=== PATIENT | female | born 1985 ===

== ENCOUNTER 2018-08-30 07:49 | Emergency (ER) | payer SELFPAY ==
[2018-08-30 07:51] VITALS: BMI 24.9
--- NOTE | 2018-08-30 08:23 | ED PDOC ---
HPI: Eye Injury/Pain Time Seen by Provider: 08/30/18 07:53 Additional History Per: Patient Additional Complaint(s): licha [id number] 33 y/o F , IUP @ 34 wks comes to the ER c/o 3 days hx of worsening Right eye swelling and pain. Patient reports no trauma, have had previous episodes of this kind of symptoms as a kid. + headache, + watery discharge, NO BLURRED VISION. Denies any fever. PMH: Denies PSH: Denies Allg: NKDA Meds: Denies SH: Denies alcohol, smoking or drug use FH: Denies Past Medical History Vital Signs: Last Vital Signs Temp 98.4 F 08/30/18 07:51 Pulse 79 08/30/18 07:51 Resp 16 08/30/18 07:51 BP 99/66 L 08/30/18 07:51 Pulse Ox 98 08/30/18 07:51 - Family History Family History: States: No Known Family Hx - Home Medications Home Medications: Ambulatory Orders Medication Instructions Recorded DiphenhydrAMINE [Benadryl] 25 mg PO Q8H PRN 3 Days #10 cap 08/30/18 Tobramycin [Tobrex] 5 ml OP Q6H 5 Days #1 drops 08/30/18 - Allergies Allergies/Adverse Reactions: Allergies Allergy/AdvReac Type Severity Reaction Status Date / Time No Known Allergies Allergy Verified 08/30/18 08:14 Physical Exam - Physical Exam Appears: Positive for: No Acute Distress Head Exam: Positive for: NORMAL INSPECTION Skin: Positive for: Normal Color Eye Exam: Positive for: EOMI, PERRL, Periorbital swelling, Conjunctival injection. Negative for: Nystagmus, Periorbital tenderness ENT: Positive for: Normal ENT Inspection Neck: Positive for: Normal Cardiovascular/Chest: Positive for: Regular Rate, Rhythm Respiratory: Positive for: Normal Breath Sounds. Negative for: Decreased Breath Sounds, Accessory Muscle Use Gastrointestinal/Abdominal: Positive for: Normal Exam Back: Negative for: L CVA Tenderness, R CVA Tenderness Extremity: Positive for: Normal ROM. Negative for: Tenderness, Pedal Edema Neurological/Psych: Positive for: Awake, Alert, Normal Tone, Oriented, compliance and control analyst II- XII - ECG O2 Sat by Pulse Oximetry: 98 - Progress ED Course And Treament: A/P: 33 y/o F with R conductivities - STAT benedryl - STAT prednosolone - STAT Tylenol - Tobramycin eye drops, 1 drop Q6H Case discussed with Dr. Benson Patient understands and agrees with plan Disposition - Clinical Impression Clinical Impression: Conjunctivitis - Disposition Referrals: [facility] [Provider Group] Disposition Time: 08:58 Condition: FAIR Additional Instructions: Use Benadryl Q6H PRN C/w Eye drops as instructed/Caution in Wash it with clean water Q6H Follow up with PMD in 2-3 days Prescriptions: DiphenhydrAMINE [Benadryl] 25 mg PO Q8H PRN 3 Days #10 cap PRN Reason: Itching / Pruritus Tobramycin [Tobrex] 5 ml OP Q6H 5 Days #1 drops Instructions: Conjunctivitis (Pinkeye) (DC), How to Use Eye Drops Forms: [facility] (Sinhala), [facility] (Portuguese) Print Language: CITIZEN OF [place]
[2018-08-30] MEDS ORDERED: Tobramycin 0.3% OPHT SOLN OD SCH (08:30)
[2018-08-30 09:43] VITALS: BP 101/63; PULSE 81; RESP 18; TEMP 98.1; O2SAT 99
== END 2018-08-30 09:49 | disposition home or self-care (01) ==
LOC: H.ER 07:49
DX: H10.9 Unspecified conjunctivitis (principal); O26.893 Other specified pregnancy related conditions, third trimester; O99.89 Other specified diseases and conditions complicating pregnancy, childbirth and the puerperium; Z3A.34 34 weeks gestation of pregnancy

== ENCOUNTER 2018-09-17 11:24 | Inpatient (IN) | payer MEDICAID, SELFPAY ==
[2018-09-17 12:07] VITALS: BMI 27.8
[2018-09-17] MEDS ORDERED: Oxytocin 30 UNIT in NS 500 ml 30 UNITS/500 ML BAG IV ONE (12:23)
[2018-09-17] MEDS ORDERED: OXYTOCIN/0.9 % NS 20 UNIT/1,000 ML BAG IV ONE (12:23)
[2018-09-17] MEDS ORDERED: Lactated Ringer's 1,000 ML IV SCH (12:30)
[2018-09-17 13:14] VITALS: RESP 18
[2018-09-17 13:19] LABS: HEMOGLOBIN 11.7 g/dL (12.0-16.0); MEAN CELL VOLUME 77.3 fl (81.0-99.0); MEAN CORPUSCULAR HEMOGLOBIN 24.9 pg (27.0-31.0); MEAN CORPUSCULAR HGB CONC 32.3 g/dL (33.0-37.0); RBC 4.7 Mil/uL (3.80-5.20); RED CELL DISTRIBUTION WIDTH 15.3 % (11.5-14.5); WHITE BLOOD COUNT 14.4 K/uL (4.8-10.8)
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
[2018-09-17] MEDS ORDERED: Benzocaine/Menthol SPRAY TOP PRN ×2 (15:03→16:12)
[2018-09-17] MEDS ORDERED: Oxycodone/Acetaminophen 5/325 mg Tab PO PRN ×4 (15:03→16:12)
--- NOTE | 2018-09-17 15:10 | OBDS ---
DELIVERY PERSONNEL Delivery Doctor: Concetta Tyler MD Fireman: Svetlana To RN Resident: Arnel (fellow) MATERNAL INFORMATION Delivery Anesthesia: None Medications in Delivery: Pitocin Estimated Blood Loss (ml): 200 Placenta Cultured: No Maternal Complications: None RN Comments: Atraumatic of Viable babygirl with Lusty cry Dr. Hyatt in room to assess infant du e to Light meconium noted in fluid. Infant assigned 9/9 APGARs/. Skin to skin initiated after 5 min utes of delivery. Patient tolerated delivery well. Patient bonding with and initiating breast feeding. Patient and infant recoverying well. Provider Comments: 33 year old at 38.2 who presented in spontaneous labor. Progressed to normal spontaneous vaginal delivery live female infact, position JESSY over intact perineum without epidural anesthesia. placed directly on maternal abdomen, delayed cord clamping performed. Apgars 9 _ 9 , no excessive resuscitation required. Thin meconium present and peds was in attendace. No nuchal cor d. Spontaneous delivery of placenta with 3-vessel cord. No lacerations. QBL 100cc. Mom and are in stable condition and will be recovered in L_D. Attending Dr. Tyler was present for the delivery. Yuko Seals MD OB Fellow I was present for this delivery. (ES) LABOR SUMMARY EDC: 09/28/2018 00:00 No. Babies in Womb: 1 Attempted: No Labor Anesthesia: None LABOR INFORMATION Reason for Induction: Not Applicable Onset of Labor: 09/17/2018 08:00 Complete Dilatation: 09/17/2018 13:20 Oxytocin: N/A Group B Beta Strep: Negative Antibiotics # of Doses: 0 Steroids Given: None Reason Steroids Not Administered: Not Applicable Other Reason Not Administered: not required MEMBRANES Membranes Rupture Method: Artificial Rupture of Membranes: 09/17/2018 13:25 Length of Rupture (hrs): 0.10 Amniotic Fluid Color: Light Meconium Amniotic Fluid Amount: Moderate Amniotic Fluid Odor: Normal STAGES OF LABOR Stage 1 hrs: 5 Stage 1 min: 20 Stage 2 hrs: 0 Stage 2 min: 11 Stage 3 hrs: 0 Stage 3 min: 6 Total Time in Labor hrs: 5 Total Time in Labor min: 37 VAGINAL DELIVERY Episiotomy: None Laceration Extension: N/A Laceration Type: None Initial Vag Sponge Count: 5 Final Vag Sponge Count: 5 Initial Vag Sharps Count: 0 Final Vag Sharps Count: 0 Sponge Count Correct: Yes Sharps Count Correct: Yes BABY A INFORMATION Delivery Date/Time: 09/17/2018 13:31 Method of Delivery: Vaginal Born in Route : No : N/A Forceps: N/A Vacuum Extraction: N/A Shoulder Dystocia : No SHOULDER DYSTOCIA BABY A Infant Delivery Date/Time: 09/17/2018 13:31 PRESENTATION/POSITION BABY A Presentation: Cephalic Cephalic Presentation: Vertex Vertex Position: Left Occipital Anterior Breech Presentation: N/A PLACENTA INFORMATION BABY A Placenta Delivery Time : 09/17/2018 13:37 Placenta Method of Delivery: Spontaneous Placenta Status: Delivered SCORES BABY A Heart Rate 1 min: >100 bpm Resp Effort 1 min: Good Cry Reflex Irritability 1 min: Cough or Sneeze or Pulls Away Muscle Tone 1 min: Active Motion Color 1 min: Body [place], Extremities Blue Resuscitation Effort 1 min: N/A SCORE 1 MIN: 9 Heart Rate 5 min: >100 bpm Resp Effort 5 min: Good Cry Reflex Irritability 5 min: Cough or Sneeze or Pulls Away Muscle Tone 5 min: Active Motion Color 5 min: Body [place], Extremities Blue Resuscitation Effort 5 min: N/A SCORE 5 MIN: 9 INFORMATION BABY A Gestational Age at Delivery: 38.0 Gestational Status: Term Infant Outcome : Liveborn Infant Condition : Stable Sex: Female IDENTIFICATION/MEDS BABY A ID Band Number: [id number] ID Band Location: Left Leg; Left Arm WEIGHT/LENGTH BABY A Infant Birthweight (gms): 3060 Infant Weight (lb): 6 Infant Weight (oz): 12 CORD INFORMATION BABY A No. Cord Vessels: 3 Nuchal Cord : N/A Cord Blood Taken: No Suction: Mouth ASSESSMENT BABY A Infant Complications: None Physical Findings at Delivery: Within Normal Limits Infant Respirations: Appears Normal Salesforce Developer/ALS Called : No Care By: Dr Hyatt Transferred To: Remains with Mother
[2018-09-18 07:49] LABS: HEMOGLOBIN 9.8 g/dL (12.0-16.0); MEAN CELL VOLUME 77.2 fl (81.0-99.0); MEAN CORPUSCULAR HEMOGLOBIN 24.8 pg (27.0-31.0); MEAN CORPUSCULAR HGB CONC 32.1 g/dL (33.0-37.0); RBC 3.94 Mil/uL (3.80-5.20); RED CELL DISTRIBUTION WIDTH 15.2 % (11.5-14.5); WHITE BLOOD COUNT 11.5 K/uL (4.8-10.8)
--- NOTE | 2018-09-18 10:28 | OBPPN ---
Datetime: 09/18/2018 06:00 PP Pain Prov: Within normal limits PP Nausea Prov: Denies PP Flatus Prov: Yes PP BM Prov: No PP Heart Prov: Normal PP Lungs Prov: Normal PP Comments Phys Exam Prov: see note PP Impression Prov: Normal progression PP Plan Prov: Continue present management PP Progress Note Prov: S: 33 YO s/p yesterday 09/17/18, today PPD1, Patient seen and exami clemente at bedside. Pain control with medication. Patient ambulating with no difficulty. Tolerating regul ar diet without N/V. Lochia is like menses in volume. Patient is passing flatus, -BM. Patient denies AGUILAR, blurry vision, CP, palpitations, SOB, chills dysuria or other complaint at this time. Breastfeedi ng appropriately. O: VS WNL GEN: NAD HEENT: NAD RESP: CTA b/l CV: RRR, S1 S2 normal, no murmurs ABD: Soft, uterus firm at umbilical level. Mild tender to touch, BS +. EXT: LE no edema, Michael's neg A/P 33 YO s/p yesterday 09/17/18, today PPD1. Patient is afebrile, hemodynamically stable an d with normal PP progression. Plan -OOB and Ambulation encouraged -Regular diet - encouraged -PNV 1 tab QD -Pain management -Continue present management -DC planning 09/19/18 Case discussed with attending Mahesh Franco MD PGY1 OB Hospitalist note: Pt sen on rounds. agree with note [place] H/h 03/07 Vital Signs Provider PP: Reviewed; Within Normal Limits
[2018-09-19 19:43] VITALS: BP 97/60; PULSE 74; TEMP 98.4; O2SAT 98
== END 2018-09-19 15:30 | disposition home or self-care (01) | DRG 560 ==
LOC: H.EROB2 11:24 → H.L&D 12:07 → H.OB/GYN 15:50
PROVIDERS: ADMIT Obstetrics & Gynecology; ATTEND Obstetrics & Gynecology
PROC: 10E0XZZ Delivery of Products of Conception, External Approach (ICD-10-PCS; principal; 2018-09-17)
PROC: 4A1HXCZ Monitoring of Products of Conception, Cardiac Rate, External Approach (ICD-10-PCS; 2018-09-17)
DX: O77.0 Labor and delivery complicated by meconium in amniotic fluid (principal); T74.21XA Adult sexual abuse, confirmed, initial encounter; Z37.0 Single live birth; Z3A.38 38 weeks gestation of pregnancy